=== PATIENT | female | born 1955 | race Caucasian/White ===

== ENCOUNTER → 2017-12-10 | Outpatient (CLI) | payer MEDICARE ==
[2017-12-10 11:48] LABS: ABG BASE EXCESS 4.9 MMOL/L (-2.5-2.5); ABG OXYGEN SATURATION 98 % (94-100); ABG PCO2 46 MMHG (35-45); ABG PH 7.42 (7.37-7.43); ABG PO2 85 MMHG (79-93); ABG TCO2 30.6 MMOL/L (21.0-31.0)
[2017-12-10 11:49] LABS: ALLENS TEST YES-POS; INSPIRED O2 ROOM AIR; PATIENT TEMP 98.4; VENTILATOR NO
== END ==
LOC: RT 11:16
PROVIDERS: ATTEND Nurse Practitioner Family
DX: R06.00 Dyspnea, unspecified (principal); G35 Multiple sclerosis; R60.9 Edema, unspecified
CPT/HCPCS: 36600; 82805

== ENCOUNTER → 2018-01-06 | Outpatient (CLI) | payer MEDICARE ==
[~2018-01-06] MED LIST: RT-ALBUTEROL SULF 2.5 MG/3 ML PRE-MIX VIAL INH ONE
--- NOTE | 2018-01-06 13:19 | Diagnostic Imaging Report ---
PROCEDURE: CT chest without contrast. TECHNIQUE: Multiple contiguous axial images were obtained through the chest without the use of intravenous contrast. INDICATION: Lung nodule. COMPARISON: No prior CT studies are available for comparison. FINDINGS: No definite axillary, hilar, or mediastinal lymphadenopathy is seen. No pericardial or pleural fluid is identified. No parenchymal mass or nodule is identified. There appears to be some scarring and mild bronchiectasis in bilateral upper lobes. Minimal subpleural scarring in the right lower lobe posteriorly is seen. The upper abdomen is unremarkable. IMPRESSION: Chronic pulmonary parenchymal changes, as described. No mass is identified. Dictated by: Dictated on workstation # [id number]
== END ==
LOC: EDUNIT# 12-10 11:07 → RT 12:10
PROVIDERS: ATTEND Nurse Practitioner Family
DX: R06.00 Dyspnea, unspecified (principal); G35 Multiple sclerosis; R91.1 Solitary pulmonary nodule
CPT/HCPCS: 71250; 94060; 94726; 94729

== ENCOUNTER → 2018-04-14 | Outpatient (CLI) | payer MEDICARE ==
[~2018-04-14] MED LIST changes: +IOHEXOL 350 MG/ML 100 ML (OMNIPAQUE 350) VIAL IV ONE; +NS 250 ML (IVPB) BAG IV ONE; +RECEIVED CONTRAST (Hold Metformin) IV SCH; -RT-ALBUTEROL SULF 2.5 MG/3 ML PRE-MIX VIAL INH ONE
[2018-04-14 09:54] LABS: BUN/CREATININE RATIO 21; CREATININE SERUM 0.76 MG/DL (0.60-1.30); GFR ESTIMATED > 60
--- NOTE | 2018-04-14 14:42 | Diagnostic Imaging Report ---
PROCEDURE: CT chest with contrast only. TECHNIQUE: Multiple contiguous axial images were obtained through the chest after administration of intravenous contrast. INDICATION: Dyspnea, restrictive airway disease. FINDINGS: The previous CT chest exam of 01/06/2018 noted chronic pulmonary disease but failed to show any sign of an acute abnormality or of a lung mass. On this study, the heart is stable in size. The aorta is not abnormally dilated and there is no sign of a dissection. There is no defect within the pulmonary arteries to indicate a pulmonary embolus. The scar formation and the groundglass densities in both perihilar regions seen on the prior study are again evident and not significantly changed. There is also a small 4 mm parenchymal opacity in the posterior aspect of the right lower lobe (image 36/66). This finding is no different than on the prior exam either. There is no sign of a confluent pneumonia or a pleural effusion. There is no mediastinal or hilar adenopathy identified. There are small subcentimeter low-density nodules in both lobes of the thyroid. I suspect that these are benign but I would recommend that ultrasound be performed for further study. There is no obvious breast mass. According to our records, the patient has not had a mammogram. If the patient has had a recent mammogram within the last year, then no further imaging would be necessary. Otherwise, mammography would be recommended for further study. The sections through the upper abdomen failed to show any sign of an acute abnormality. The bone windows are unremarkable for a fracture or for a destructive lesion. IMPRESSION: 1. The chronic pulmonary changes in the perihilar region seen on the prior study are again evident and no different. There is no sign of an acute cardiopulmonary abnormality. 2. Ultrasound would be recommended for further evaluation of the low-density subcentimeter nodules in each lobe of the thyroid. 3. There is no obvious breast mass. Recommendations as above. Dictated by: Dictated on workstation # [id number]
== END ==
LOC: RAD 09:27
PROVIDERS: ATTEND Internal Medicine Critical Care Medicine
DX: J98.4 Other disorders of lung (principal); G35 Multiple sclerosis; F41.9 Anxiety disorder, unspecified
CPT/HCPCS: 36415; 71260; 82565; 84520